=== PATIENT | female | born 1995 | race Caucasian/White ===

== ENCOUNTER 2017-05-16 21:46 | Outpatient (CLI) | payer OTHER ==
[~2017-05-16] VITALS: Ht 160 cm; Wt 80.2 kg
[~2017-05-16 21:46] MED LIST: CALC-649 PO; FOLI-49 PO; IBUP800T25 PO; IRON18TA PO; PERCOCET PO; PREN1TAB49 PO
[2017-05-16 22:11] VITALS: Ht 160 cm; Wt 80.2 kg
[2017-05-16 22:12] VITALS: BP 123/70; PULSE 100; RESP 18
[2017-05-16] MEDS ORDERED: TERBUTALINE 1 MG/ML INJ SC ONE (23:00)
[2017-05-16] MEDS ORDERED: LACTATED RINGER'S 1,000 ML IV* SCH (23:00)
--- NOTE | 2017-05-16 23:29 | RADRPT ---
PROCEDURE: Biophysical profile. CLINICAL INDICATION: Pelvic pain. TECHNIQUE: Multiple sonographic images of the pelvis were obtained with transabdominal technique. Endovaginal evaluation of the cervix was also performed. COMPARISON: 12/17/2015. FINDINGS: There is a single living intrauterine gestation with the fetus in a vertex position. The placenta i s anterior in location, grade II. heart tones of 142 beats per minute are identified. There i s normal amniotic fluid volume with an LETICIA of 10.5 cm. The cervix is closed measuring 4.1 cm. There is no evidence of placental abruption. breathing movements = 2 Gross body movements = 2 tone = 2 Qualitative AFV = 2 IMPRESSION: Biophysical profile 8 out of 8. .Matt Lu MD, Date Time Electronically viewed and signed by .Matt Lu MD, MD on 05/16/2017 23:29 .T/
[2017-05-16 23:36] LABS: ADD UMIC YES; UR BILIRUBIN (Dip) NEGATIVE (NEGATIVE); UR BLOOD (Dip) NEGATIVE (NEGATIVE); UR COLOR LT. YELLOW (YELLOW); UR GLUCOSE (Dip) NEGATIVE (NEGATIVE); UR KETONES (Dip) NEGATIVE (NEGATIVE); UR LEUKOCYTE ESTERASE (Dip) 1+ (NEGATIVE); UR NITRITE (Dip) NEGATIVE (NEGATIVE); UR TOTAL PROTEIN (Dip) TRACE (NEGATIVE); UR UROBILINOGEN (Dip) 0.2 E.U./dL (0.1-1.0)
[2017-05-16 23:39] LABS: UR CLARITY HAZY (CLEAR)
[2017-05-16 23:59] LABS: UR BACTERIA MODERATE; UR SQUAMOUS EPITHELIAL CELL MODERATE; URINE RBCS 0-2 /HPF (0)
[2017-05-17] MEDS ORDERED: TERBUTALINE 1 MG/ML INJ SC PRN
--- NOTE | 2017-05-17 01:17 | TRIAGE ---
OB Triage Datetime Report Generated by CPN: 05/17/2017 01:17 Datetime: 05/17/2017 22:40 Stage of : OB Triage Datetime: 05/17/2017 00:47 Stage of : OB Triage Labor Evaluation Frequency: X1 Monitor Mode: External Duration (sec)2399: 50 Quality: Mild Pattern: Normal: <= 5 Contractions in 10 Minutes Resting Tone [place]: Relaxed Heart Rate FHR Baseline Rate: 135 Monitor Mode: External US Variability: Moderate 6-25 bpm Accelerations: 15X15 Decelerations: None Category: Category I Pain Goal: 3 Datetime: 05/17/2017 00:00 Stage of : OB Triage Labor Evaluation Frequency: OCCASS Monitor Mode: External Duration (sec)2399: 50-70 Quality: Mild Pattern: Normal: <= 5 Contractions in 10 Minutes Resting Tone [place]: Relaxed Heart Rate FHR Baseline Rate: 140 Monitor Mode: External US Variability: Moderate 6-25 bpm Accelerations: 15X15 Decelerations: None Category: Category I Pain Goal: 3 Datetime: 05/16/2017 23:10 Stage of : OB Triage Labor Evaluation Frequency: 2-5 Monitor Mode: External Duration (sec)2399: 50-70 Quality: Mild Pattern: Normal: <= 5 Contractions in 10 Minutes Resting Tone [place]: Relaxed Heart Rate FHR Baseline Rate: 140 Monitor Mode: External US Variability: Moderate 6-25 bpm Accelerations: 15X15 Decelerations: None Category: Category I Pain Assessment Pain Scale: 7 Pain Presence: Constant Pain Type: Dull; Ache Pain Location: Back; Left Hip Pain Goal: 3 Pain Relief Measures: Comfort Measures Datetime: 05/16/2017 22:40 Stage of : OB Triage Labor Evaluation Frequency: 2-4 Monitor Mode: External Duration (sec)2399: 50-70 Quality: Mild Pattern: Normal: <= 5 Contractions in 10 Minutes Resting Tone [place]: Relaxed Heart Rate FHR Baseline Rate: 135 Monitor Mode: External US Variability: Moderate 6-25 bpm Accelerations: 15X15 Decelerations: None Category: Category I Pain Assessment Pain Scale: 7 Pain Presence: Constant Pain Type: Dull; Ache Pain Location: Back; Left Hip Pain Goal: 3 Pain Relief Measures: Comfort Measures Datetime: 05/16/2017 22:10 Assessment Type: Triage Maternal Assessment Level of Consciousness: Fully Conscious DTR's/Clonus: DTRs 2+; No Clonus Headache: Denies Blurred Vision: No Respiratory Effort: Unlabored; Regular Rhythm; Equal Expansion Breath Sounds, Left: Clear and Equal Breath Sounds, Right: Clear and Equal Nausea/Vomiting: Denies RUQ Epigastric Pain: Denies Lower Extremities Edema: None Degree: RT. ANKLE SWOLLEN Upper Extremities Edema: None Facial Edema: None Fall Risk Assessment History of Falling: (0) No Secondary Diagnosis: (0) No Ambulatory Aid: (0) Bedrest/Nurse Assist IV Therapy: (0) No Gait: (0) Normal/Bedrest/Immobile Mental Status: (0) Oriented to Own Ability Fall Score: 0 Fall Risk Score Definition: No Risk: No action required Datetime: 05/16/2017 22:01 Time of Arrival: 05/16/2017 21:50 EGA: 35.3 Arrived By: Wheelchair Arrived From: Home Chief Complaint: FELL AROUND 2100 FROM GETTING OUT OF CAR, BACK HURTS, RT ANKLE SWOLLEN, FELL ON H ER LT. HIP Movement: Present Contractions: Denies/Absent Vaginal Bleeding: None Vaginal Discharge: Denies Abdominal Trauma: Fall Patient Complaints: None Time Provider Notified: 05/16/2017 22:27 Provider Notified: WALTER Initial Plan: U/S PLACENTA, BPP, CL, IV HYDRATION, TERB, UA
--- NOTE | 2017-05-17 02:21 | QN ---
Documentation Comment iup 35 weeks s/p fall vss exam wnl us wnl nst reactive a/p iup 35 weeks s/p fall stable dc home JOANN AGUILAR MD May 17, 2017 02:20
== END 2017-05-17 01:08 | disposition home or self-care (01) ==
LOC: OBT 21:46 → L-D 21:47 → OBT 05-17 01:08
PROVIDERS: ATTEND Obstetrics & Gynecology
DX: O26.893 Other specified pregnancy related conditions, third trimester (principal); W19.XXXA Unspecified fall, initial encounter; O09.523 Supervision of elderly multigravida, third trimester; Z3A.35 35 weeks gestation of pregnancy
CPT/HCPCS: 76815; 76817; 76818; 81001; 96360; 96361; 96372; J3105; J7120; Z7500; G0463